=== PATIENT | female | born 1985 | race African-American/Black ===

== ENCOUNTER 2018-03-04 18:32 | Emergency (ER) | payer SELFPAY ==
[2018-03-04] MEDS ORDERED: Lidocaine 1% (PF) 30 ML VIAL ONE (20:09)
[2018-03-04] MEDS ORDERED: Adacel (T-DAP) 0.5 ML VIAL ONE (20:19)
== END 2018-03-04 20:50 | disposition home or self-care (01) ==
LOC: ERS 18:32
DX: L02.11 Cutaneous abscess of neck (principal)
CPT/HCPCS: 10160; 87070; 87077; 87186; 87205; 90471; 90715; J2001